=== PATIENT | female | born 1975 | race Caucasian/White ===

== ENCOUNTER 2022-03-22 21:24 | Emergency (ER) | payer BC, SELFPAY ==
[2022-03-22 21:29] VITALS: BP 167/85; PULSE 77; RESP 18; TEMP 36.6; O2SAT 98; BMI 32.7
--- NOTE | 2022-03-22 21:38 | CRLHL7_ITS ---
For Patients: As a result of the Cures Act, medical imaging exams and procedure reports are released immediately into your electronic medical record. You may view this report before your referring provider. If you have questions, please contact your health care provider. INDICATION: Hand injury TECHNIQUE: Hand radiograph 3 views left COMPARISON: None FINDINGS: Evaluation of the digits on the lateral examination is moderately degraded due to overlapped digit positioning. Bone: No acute fractures or aggressive bone lesions are identified. Joint: The carpal and metacarpal-phalangeal joints are unremarkable in appearance. The interphalangeal joints are normal in appearance. Soft tissue: Unremarkable. No radiopaque foreign bodies are seen. IMPRESSION: 1. No acute osseous injuries or abnormalities are noted. Dictated by Kaiden Masters MD @ 03/22/2022 10:09:56 PM Dictated by: Kaiden Masters MD @ 03/22/2022 22:10:01 (Electronically Signed)
--- NOTE | 2022-03-22 21:38 | CRLHL7_ITS ---
For Patients: As a result of the Century Cures Act, medical imaging exams and procedure reports are released immediately into your electronic medical record. You may view this report before your referring provider. If you have questions, please contact your health care provider. INDICATION: Wrist injury TECHNIQUE: Wrist radiograph 3 views left COMPARISON: None FINDINGS: Bone: No acute fractures or aggressive bone lesions are identified. Joint: The radiocarpal, carpal, and carpometacarpal joints are unremarkable in appearance. Soft tissue: Unremarkable. No radiopaque foreign bodies are seen. IMPRESSION: 1. No acute osseous injuries or abnormalities are noted. Dictated by: Kaiden Masters MD @ 03/22/2022 22:07:49 (Electronically Signed)
[2022-03-22 21:55] VITALS: TEMP 36.6
[2022-03-22] MEDS: KETOROLAC 10 MG TABLET PO (21:55)
[2022-03-22 21:58] VITALS: BP 154/70; PULSE 75; PULSE 77; RESP 18; TEMP 36.6; O2SAT 98
[2022-03-22 22:11] VITALS: BP 145/78; PULSE 79; RESP 18; TEMP 36.6
--- NOTE | 2022-05-05 11:55 | ED_ITS ---
DATE: 03/22/2022 CHIEF COMPLAINT Left wrist and hand got caught in a trailer door. HISTORY PRESENT ILLNESS The patient is a pleasant 46-year-old white female whose medical chart is reviewed. ?She has a history of mild reactive airway disease, migraines. ?She had a door come down on her hand. ?She has a small abrasion to the back of her hand and complains of pain in her wrist and dorsum of her hand. ?No other specific complaints. ?She is able to move her wrist. ?She feels some tingling in her fingers distally. ?Did not actually contused her fingers. ?She presents to the ER for evaluation. ?She is updated on tetanus. ? PAST HISTORY Reviewed. ALLERGIES None. MEDICATIONS Reviewed. FAMILY HISTORY Unremarkable. REVIEW OF SYSTEMS No history of skin problems, healing issues, hand or wrist injuries. ? PHYSICAL EXAMINATION VITAL SIGNS: ?Slightly elevated blood pressure. ? EXTREMITIES: ?She has an abrasion over left dorsum of her hand. ?She has good distal CMS in her hand. ?No point tenderness or crepitus in the hand or wrist. ?No snuffbox tenderness. TEST RESULTS X-ray of the hand and wrist looks unremarkable by my read to fracture. ?There is some soft tissue swelling. ? EMERGENCY ROOM COURSE The patient is updated on tetanus. ?She was given Toradol 10 mg orally. ASSESSMENT 46-year-old female with a left hand and wrist contusion, small abrasion. ? PLAN Recommend observation. ?Bacitracin and cleansing of the wound. ?We covered with a bandage. ?We will put her in a forearm splint and wrist splint. ?Light use of the hand for 3 days. ?Advil or Aleve as directed. ?Tylenol as needed, and icing on a regular basis. ?Update her regular physician within the next 2 days if not completely improved. ?Radiology review of her x-ray to come. ?The patient and her are comfortable with the plan.
== END 2022-03-22 22:17 | disposition home or self-care (01) ==
LOC: ED 22:06
PROVIDERS: Emergency Provider Family Medicine
DX: S60.212A Contusion of left wrist, initial encounter (principal); W23.0XXA Caught, crushed, jammed, or pinched between moving objects, initial encounter
CPT/HCPCS: 29125; 73110; 73130; 99283; A9270

== ENCOUNTER 2024-02-08 08:04 | Outpatient (CLI) | payer BC, SELFPAY ==
--- NOTE | 2024-02-08 08:15 | CRLHL7_ITS ---
For Patients: As a result of the Century Cures Act, medical imaging exams and procedure reports are released immediately into your electronic medical record. You may view this report before your referring provider. If you have questions, please contact your health care provider. BILATERAL SCREENING MAMMOGRAM WITH COMPUTER-AIDED DETECTION AND TOMOSYNTHESIS TECHNIQUE: CC, MLO and Implant displaced views were obtained. These mammographic images have been obtained using full-field digital technique. These mammographic images were interpreted with the benefit of computer-aided detection. Breast Tomosynthesis was used in this interpretation. COMPARISON FILM: 04/08/20, 07/25/13. FINDINGS: There are scattered areas of fibroglandular density. IMPRESSION: There is no radiographic evidence for malignancy. ASSESSMENT: BI-RADS Category 2: Benign RECOMMENDATION: Routine screening mammogram in 1 year. A lay language report of this examination will be provided to the patient. Alphonso Leslie M.D. Diagnostic Radiologist [email or web address] SP/Dictated by: Alphonso Leslie MD @ 02/13/2024 9:26:00 AM (Electronically Signed)
== END 2024-02-08 08:05 | disposition home or self-care (01) ==
LOC: MAMMO 08:05
PROVIDERS: PCP Physician Assistant Medical; Visit Provider Physician Assistant Medical
DX: Z12.31 Encounter for screening mammogram for malignant neoplasm of breast (principal)
CPT/HCPCS: 77063; 77067